=== PATIENT | female | born 1940 | race Caucasian/White ===

== ENCOUNTER → 2017-05-24 | Outpatient (CLI) | payer MEDICARE, OTHER ==
[~2017-05-24] MED LIST: ANUSOL-HC SUPP25 MG PR; ASACOL400 MG; ASACOL400 MG PO; AZASAN100 M1 PO; CANASA1000 MG/SU; CENTRUM SILVER PO; CITRACAL-VIT D1 EAC1 PO; CITRACAL200 MG PO; CORTENEMA100 MG/60 RC; DARVOCET-N 1001 TAB PO; EVISTA60 M1 PO; EVISTA60 MG PO; FAMOTIDINE; FISH OIL 1,0001 CAP PO; FISH OIL 1,2001 CAP PO; HYDRALAZINE HCL25 MG PO; IMURAN50 MG PO; LIPITOR; LIPITOR PO; MULTI-VITAMIN1 TAB PO; PHENERGAN PO; PREDNISONE; PREDNISONE PO; PREDNISONE10 MG/DOSE PO; PREVACID PO
[2017-05-24 08:31] LABS: BASOPHIL% 0.6 % (0-2.5); EOSINOPHIL# 0.2 X10e3 (0-0.7); EOSINOPHIL% 4.5 % (0.0-7.0); HEMATOCRIT 35.8 % (35.0-45.0); HEMOGLOBIN 11.7 gm/dL (12.0-16.0); LYMPHOCYTE% 27.2 % (17.0-45.0); MEAN CELL VOLUME 94.6 FL (83-96); MEAN CORPUSCULAR HGB CONC 32.8 g/dL (30-36); MEAN PLATELET VOLUME 7.8 FL (6.5-11.5); MONOCYTE# 0.4 X10e3 (0-1.0); MONOCYTE% 11.1 % (3.0-12.0); NEUTROPHIL# 2.1 X10e3 (1.5-7.1); NEUTROPHIL% 56.6 % (40-75); PLATELET COUNT 265 X10e3 (140-420); RED BLOOD COUNT 3.79 X10e (3.90-5.30); RED CELL DISTRIBUTION WIDTH 15.2 % (11.0-15.5); WHITE BLOOD COUNT 3.7 X10e3 (4.0-10.5)
[2017-05-24 08:54] LABS: DIFF IND NO
[2017-05-24 08:55] LABS: ALBUMIN SERUM 3.8 g/dL (3.5-5.0); BILIRUBIN,TOTAL 0.7 mg/dL (0.2-2.0); BUN/CREATININE RATIO 32.5; CALCIUM SERUM 9.1 mg/dL (8.4-10.2); CREATININE SERUM 0.8 mg/dL (0.6-1.4); GLOM FILT RATE Estimated 70.2 mL/min (>60); POTASSIUM 3.9 mmol/L (3.5-5.1)
== END | disposition home or self-care (01) ==
LOC: CLAB 08:12
PROVIDERS: Nurse Practitioner
DX: Z51.81 Encounter for therapeutic drug level monitoring (principal); K51.90 Ulcerative colitis, unspecified, without complications; Z79.899 Other long term (current) drug therapy
CPT/HCPCS: 36415; 80053; 85025